=== PATIENT | male | born 1980 | race Two or more races ===

== ENCOUNTER 2024-08-16 08:51 | Outpatient (CLI) | payer OTHER, SELFPAY | END 2024-08-16 08:52 | disposition home or self-care (01) | PROVIDERS: Visit Provider Physician Assistant Medical | DX: R20.2 Paresthesia of skin (principal); F41.9 Anxiety disorder, unspecified; F10.10 Alcohol abuse, uncomplicated; F43.10 Post-traumatic stress disorder, unspecified; Z13.6 Encounter for screening for cardiovascular disorders | CPT/HCPCS: 80053; 80061; 82306; 82607; 82746; 83735; 84425; 84443 ==